=== PATIENT | female | born 1970 | race Caucasian/White ===

== ENCOUNTER 2019-03-03 09:51 | Outpatient (RCR) | payer OTHER, SELFPAY | END 2019-03-16 00:01 | LOC: WOUND 09:51 | PROVIDERS: Visit Provider Nurse Practitioner Family | DX: I87.2 Venous insufficiency (chronic) (peripheral) (principal); L97.822 Non-pressure chronic ulcer of other part of left lower leg with fat layer exposed | CPT/HCPCS: 11042 ×2; 11045 ×2; 87070; 87077; 87176; 87186 ×5; 87205; G0463 ==

== ENCOUNTER 2019-03-18 09:45 | Outpatient (RCR) | payer BC, SELFPAY | END 2019-04-16 23:59 | disposition home or self-care (01) | LOC: WOUND 09:45 | PROVIDERS: Visit Provider Nurse Practitioner Family | DX: I87.2 Venous insufficiency (chronic) (peripheral) (principal); L97.822 Non-pressure chronic ulcer of other part of left lower leg with fat layer exposed; I96 Gangrene, not elsewhere classified | CPT/HCPCS: 11042; 11045 ==

== ENCOUNTER 2019-04-13 09:18 | Day surgery (SDC) | payer BC, SELFPAY ==
[2019-04-13 10:28] VITALS: BP 143/83; PULSE 80; RESP 18; TEMP 36.6; O2SAT 98
--- NOTE | 2019-04-13 10:35 | ANES.PREANES ---
Pre-Anesthetic Assessment Pre-Anesthetic Assessment: Height/Weight: Height 1.68 m Weight 195.045 kg Temp Pulse Resp BP Pulse Ox 98 F 80 18 143/83 98 04/13/19 10:28 04/13/19 10:28 04/13/19 10:28 04/13/19 10:28 04/13/19 10:28 Preop Diagnosis: Left lower extremity ulcer Proposed Procedure: Operation Date: 04/13/19 11:30 Proposed Procedures p Debridement left lower leg(Left) - Stewart Guajardo MD Social: Social History: No alcohol and No tobacco Exam: Pre-Anes Outpt Exam: alert, oriented x 3, clear to auscultation bilaterally and regular rate & rhythm Airway: Submandibular: WNL Cervical ROM: WNL MP: 4 Dentition: Other (teeth ok) History/ROS: No significant history except as noted Pulmonary: Pulmonary: REEVES and Sleep apnea CV/HEM: CV/HEM: HTN : : None reported Hepatic: Hepatic: None reported GI: GI: GERD (occ) Metabolic: Metabolic: DM, Morbid obesity and Thyroid Musc/skel: Musc/skel: Lower Back Pain and OA/DJD Neuropsych: Neuropsych: Neuropathy (feet) Anesthetic Plan: ASA status: III Anesthesia: Anesthesia Evaluation and MAC Risk of > 500 ml blood loss (7ml/kg in children): No PFSH Anesthesia PFSH: Medical History Hypertension (Acute) Irritable bowel syndrome (IBS) (Acute) Surgical History Hx of dilation and curettage (Acute) Data Anesthesia Cardiac Studies: No Data to Display
--- NOTE | 2019-04-13 10:43 | PM.HPUD ---
H&P update H&P Update: DATE OF SURGERY/PROCEDURE: 04/13/19 DATE H&P PERFORMED: 04/09/19 H&P UPDATE INFORMATION: H&P completed within last 30 days and No changes to prior documentation PREOP DIAGNOSIS: Chronic left lower extremity ulcer PLANNED PROCEDURE: Operation Date: 04/13/19 11:30 Proposed Procedures p Debridement left lower leg(Left) - Stewart Guajardo MD Full H&P Perinent History: Medical/Surgical History: Medical History (Updated 04/13/19 @ 10:35 by Jase Ross MD) Hypertension (Acute) Irritable bowel syndrome (IBS) (Acute)
[2019-04-13] MEDS: sodium chloride 0.9% 1,000 ML 30 ML IV (10:59)
[2019-04-13 11:03] LABS: Glucose Point of Care 123 mg/dL (70-110)
[2019-04-13 11:10] LABS: OR HCG Qualitative Urine Negative (Negative)
[2019-04-13 11:32] LABS: Anion Gap 18.9 (5-19); Blood Urea Nitrogen 20 mg/dL (6-20); Calcium 9.8 mg/dL (8.5-10.5); Carbon Dioxide 21 mmol/L (22-29); Chloride 101 mmol/L (98-107); Glomerular Filtration Rate 47.9 mL/min (90-130); Glucose 141 mg/dL (74-109); Osmolality Calculated 281 mOsm/kg (285-295); Potassium 4.9 mmol/L (3.5-5.1); Sodium 136 mmol/L (136-145)
[2019-04-13] MEDS: lidocaine 2% INJ 20 mL INJECTION (11:40)
--- NOTE | 2019-04-13 12:05 | PM.OP ---
Operative Report Date of procedure: 04/13/19 Pre-op Diagnosis: Chronic left lower extremity ulcer Post-op diagnosis: same Post-op Findings: Pre-debridement measurement 9 x 4.7 x 0.2 cm Post debridement measurements 10 x 5 x 0.3 cm Procedure Done: Sharp debridement of left lower extremity ulcer Specimens removed/disposition: Tissue sent to rule out cancer from the superior pole of the ulcer Tissue sent for cultures and sensitivity Surgeon: Stewart Guajardo Director Of Strategic Sales: Jocelyn medical student Branden director medical surgical Anesthesia: MAC (field operator Smart) Estimated blood loss (mL): 5 Complications: No immediate complications Condition: stable Disposition: same day Brief History: This is a pleasant 48 years old female patient has chronic left lower extremity ulcer that has been seen and evaluated at the wound care center by my nurse practitioner, and since the patient had a persistent ulcer for over a year now approximately my nurse practitioner needed my opinion for potential debridement, I did evaluate the patient and apparently she was supposed to get a venous ablation at some point as her working diagnosis is chronic venous insufficiency, but that did not happen for different reasons. . After thorough history physical examination and reviewing the chart and images with my personal interpretation, I counseled the patient for debridement of her left chronic lower extremity ulcer and obtain cultures and sensitivities for infectious disease in [place] in addition I did family and marriage counsellor the patient to obtain a tissue biopsy to rule out potential cancer due to the longevity of the ulcer. Patient agreed on the plan of care Informed consent per chart Procedure: Left lower extremity ulcer After identifying the patient holding area, the left ower extremity was marked before the procedure by myself, patient was then taken to the operative suite, was placed in supine position, IV antibiotics were given per protocol,IV propofol was infused by the anesthesia provider, prep and drape of the left lower extremity was done under the usual sterile technique. Time-out was done verifying the patient's name/date of /planned procedure and destination after the procedure, all were in agreement. Started by excising the unhealthy necrotic indurated tissues of the wound. Incision was created at the skin level and went all the way down to the subcutaneous tissues, and FASCIAL layer of the ulcer, I was able excise all unhealthy tissues Pre-debridement measurement 9 x 4.7 x 0.2 cm Post debridement measurements 10 x 5 x 0.3 cm Sharp Debridement all the way to the healthier muscle layer At the superior pole of the ulcer I elected to take a wedge biopsy ,tissues were sent for permanent histopathology from the edges of the ulcer to rule out malignancy and tissue were sent for cultures Thorough Irrigation of the wound was done with warm saline, followed by appropriate hemostasis followed by placement of large piece of Surgicel,packing of the wound was done with wet-to-dry 4 by 4 followed by ABDs, Kerlix and Emeka wrap. Patient tolerated the procedure well, count of instruments , needles and sponges were completed at the end of the procedure.Patient was then taken to the recovery area in stable condition. I was present for the whole entire procedure
[2019-04-13 12:19] VITALS: BP 111/89; PULSE 95; RESP 18; TEMP 36.3; O2SAT 97
== END 2019-04-13 12:50 | disposition home or self-care (01) ==
PROVIDERS: Anesthesiology; Visit Provider Surgery
PROC: (CPT 11043; principal; 2019-04-13 10:50)
DX: L97.822 Non-pressure chronic ulcer of other part of left lower leg with fat layer exposed (principal); E66.01 Morbid (severe) obesity due to excess calories; Z82.49 Family history of ischemic heart disease and other diseases of the circulatory system; Z83.3 Family history of diabetes mellitus; I10 Essential (primary) hypertension; G47.30 Sleep apnea, unspecified; M19.90 Unspecified osteoarthritis, unspecified site
CPT/HCPCS: 11043; 11046; 12345; 36415; 36416; 80048; 81025; 82962; 84703; 87070; 87077; 87176; 87186; 87205; 88305; J0690; J2001; J2704; J3010; J7030

== ENCOUNTER 2019-04-16 10:44 | Outpatient (RCR) | payer BC, SELFPAY | END 2019-04-16 23:59 | disposition home or self-care (01) | LOC: WOUND 10:44 | PROVIDERS: Visit Provider Surgery | DX: I87.2 Venous insufficiency (chronic) (peripheral) (principal); L97.822 Non-pressure chronic ulcer of other part of left lower leg with fat layer exposed | CPT/HCPCS: 11042; 11045 ==

== ENCOUNTER 2019-05-05 09:54 | Outpatient (RCR) | payer BC, SELFPAY | END 2019-05-15 23:59 | disposition home or self-care (01) | LOC: WOUND 09:54 | PROVIDERS: Visit Provider Nurse Practitioner Family | DX: I87.2 Venous insufficiency (chronic) (peripheral) (principal); L97.822 Non-pressure chronic ulcer of other part of left lower leg with fat layer exposed | CPT/HCPCS: 11042; 11045 ==

== ENCOUNTER 2019-06-09 08:53 | Outpatient (RCR) | payer BC, SELFPAY | END 2019-06-15 23:59 | disposition home or self-care (01) | LOC: WOUND 08:53 | PROVIDERS: Visit Provider Nurse Practitioner Family | DX: I87.2 Venous insufficiency (chronic) (peripheral) (principal); L97.822 Non-pressure chronic ulcer of other part of left lower leg with fat layer exposed | CPT/HCPCS: 11042; 11045 ==

== ENCOUNTER 2019-07-14 09:17 | Outpatient (RCR) | payer BC, SELFPAY | END 2019-07-15 23:59 | disposition home or self-care (01) | LOC: WOUND 09:17 | PROVIDERS: Visit Provider Thoracic Surgery (Cardiothoracic Vascular Surgery) | DX: I87.2 Venous insufficiency (chronic) (peripheral) (principal); L97.822 Non-pressure chronic ulcer of other part of left lower leg with fat layer exposed | CPT/HCPCS: 11042; 11045; 97605 ==

== ENCOUNTER 2019-07-21 09:51 | Outpatient (CLI) | payer BC, SELFPAY | END 2019-07-21 09:52 | disposition home or self-care (01) | LOC: WOUND 09:52 | PROVIDERS: Visit Provider Thoracic Surgery (Cardiothoracic Vascular Surgery) | DX: I87.2 Venous insufficiency (chronic) (peripheral) (principal); L97.822 Non-pressure chronic ulcer of other part of left lower leg with fat layer exposed | CPT/HCPCS: 11042; 11045 ==

== ENCOUNTER 2019-07-28 09:27 | Outpatient (CLI) | payer BC, SELFPAY | END 2019-07-28 09:28 | disposition home or self-care (01) | LOC: WOUND 09:27 | PROVIDERS: Visit Provider Thoracic Surgery (Cardiothoracic Vascular Surgery) | DX: I87.2 Venous insufficiency (chronic) (peripheral) (principal); L97.822 Non-pressure chronic ulcer of other part of left lower leg with fat layer exposed | CPT/HCPCS: 11042; 11045 ==

== ENCOUNTER 2019-08-04 09:29 | Outpatient (CLI) | payer BC, SELFPAY | END 2019-08-04 09:30 | disposition home or self-care (01) | LOC: WOUND 09:30 | PROVIDERS: Visit Provider Thoracic Surgery (Cardiothoracic Vascular Surgery) | DX: I87.2 Venous insufficiency (chronic) (peripheral) (principal); L97.822 Non-pressure chronic ulcer of other part of left lower leg with fat layer exposed | CPT/HCPCS: 11042; 11045 ==

== ENCOUNTER 2019-08-10 15:09 | Outpatient (CLI) | payer BC, SELFPAY | END 2019-08-10 15:10 | disposition home or self-care (01) | LOC: WOUND 15:10 | PROVIDERS: Visit Provider Thoracic Surgery (Cardiothoracic Vascular Surgery) | DX: I87.2 Venous insufficiency (chronic) (peripheral) (principal); L97.822 Non-pressure chronic ulcer of other part of left lower leg with fat layer exposed | CPT/HCPCS: 11042; 11045 ==

== ENCOUNTER 2019-08-18 09:47 | Outpatient (CLI) | payer BC, SELFPAY | END 2019-08-18 09:48 | disposition home or self-care (01) | LOC: WOUND 09:47 | PROVIDERS: Visit Provider Thoracic Surgery (Cardiothoracic Vascular Surgery) | DX: I87.2 Venous insufficiency (chronic) (peripheral) (principal); L97.822 Non-pressure chronic ulcer of other part of left lower leg with fat layer exposed | CPT/HCPCS: 11042; 11045 ==

== ENCOUNTER 2019-08-25 09:37 | Outpatient (CLI) | payer BC, SELFPAY | END 2019-08-25 09:38 | disposition home or self-care (01) | LOC: WOUND 09:38 | PROVIDERS: Visit Provider Thoracic Surgery (Cardiothoracic Vascular Surgery) | DX: I87.2 Venous insufficiency (chronic) (peripheral) (principal); L97.822 Non-pressure chronic ulcer of other part of left lower leg with fat layer exposed | CPT/HCPCS: 11042; 11045 ==

== ENCOUNTER → 2019-08-30 10:29 | Day surgery (SDC) | payer BC, SELFPAY ==
[2019-08-30 11:07] VITALS: BP 126/73; PULSE 88; RESP 16; TEMP 36.9; O2SAT 96
--- NOTE | 2019-08-30 14:46 | P.OP_ITS ---
Operative Report Date of procedure: August 30, 2019 Pre-op Diagnosis: Chronic left lower extremity ulcer with severe venous reflux of left lower extremity greater saphenous vein Post-op diagnosis: same Procedure Done: Radiofrequency catheter ablation of the left greater saphenous vein Pathology: none sent Surgeon: Emmanuel Zhu Anesthesia: Local (1% lidocaine; lidocaine tumescence) Complications: None Condition: stable Disposition: other (Discharge to home) Brief History: Ms. Vargas is a 49-year-old obese female with a longstanding lateral distal venous ulcer of the left lower extremity who is being cared for by [facility] wound care services utilizing debridement and compression therapy. Her evaluation is documented substantial venous reflux of the greater saphenous vein on the left side of greater than 500 ms. Anatomy appears conducive to consideration for catheter ablation to assist with healing of this venous ulcer. Rationale for the procedure was carefully and frankly discussed. Details the risk of the procedure were carefully reviewed. Proper consents have been reviewed and signed. Procedure: The insufficient left greater saphenous vein was verified by ultr asound and diagrammed on the overlying skin. The varicose tributary veins and suitable access sites were identified and mapped. The affected left lower extremity was prepped and draped in the usual sterile fashion. Ms. Vargas was placed in reverse Trendelenburg position. Tumescent was instilled in the skin overlying the access site for local anesthesia. The vein was accessed in the distal left thigh using ultrasound guidance and the Seldinger technique, a guidewire was introduced through the needle, which was then exchanged over the guidewire for a 7F sheath. The RF catheter was placed on the sterile field, flushed and wiped down, prepared, and connected by a sterile cable. She was placed in Trendelenburg position. After RF catheter position was verified by ultrasound, tumescent anesthesia was infiltrated, under ultrasound guidance, precisely into the perivenous compartment along the entire length of vein. After the RF catheter position was again confirmed with ultrasound imaging, and under direct external compression along the length of the heating element, RF energy was applied. The vein was segmentally ablated until the treatment length was completed. Device temperature was maintained at 120 +/- degrees C with an initial power level of 40W dropping to below 20W for each treatment. Total vein length treated 30 cm. Total cycles of RF 14. Time 4 minutes and 40 seconds. Repeat ultrasound of the left greater saphenous vein was performed, confirming successful treatment. The catheter and sheath were withdrawn and hemostasis established with direct pressure. After assuring hemostasis, the skin incision over the saphenous vein was closed with a bandage and graduated compression stocking was applied from the level of the foot to the most proximal length of the thigh. She will follow-up in wound care services in 2 days. Follow-up post treatment ultrasound has also been scheduled. This will be on September 05 at 1:30 PM
== END | disposition home or self-care (01) ==
PROVIDERS: Visit Provider Thoracic Surgery (Cardiothoracic Vascular Surgery)
DX: I87.2 Venous insufficiency (chronic) (peripheral) (principal); L97.522 Non-pressure chronic ulcer of other part of left foot with fat layer exposed; E66.9 Obesity, unspecified; E11.622 Type 2 diabetes mellitus with other skin ulcer; E03.9 Hypothyroidism, unspecified
CPT/HCPCS: 12345; 36475; C1769; C1888; C1894; J2001; J7040; J7050

== ENCOUNTER 2019-09-01 09:36 | Outpatient (CLI) | payer BC, SELFPAY | END 2019-09-01 09:37 | disposition home or self-care (01) | LOC: WOUND 09:38 | PROVIDERS: Visit Provider Thoracic Surgery (Cardiothoracic Vascular Surgery) | DX: I87.2 Venous insufficiency (chronic) (peripheral) (principal); L97.822 Non-pressure chronic ulcer of other part of left lower leg with fat layer exposed | CPT/HCPCS: 11042; 11045 ==

== ENCOUNTER 2019-09-06 13:22 | Outpatient (CLI) | payer BC, SELFPAY ==
--- NOTE | 2019-09-06 13:26 | USCV_ITS ---
Stephani Vargas Age: 49 Gender: F : 1970 Exam Date: 09/06/2019 13:42 Ordering Phys: Emmanuel Zhu MD (Andy) ([email or web address]) Technologist: Briana Wolfe Exam Location: [facility] [place] Indication: POST LT GSAPH ABLATION HISTORY: POST LT ABLATION PROCEDURES: Venous duplex imaging was performed in only the left lower extremity. The following venous structures were evaluated: common femoral vein, profunda vein, proximal portion of the greater saphenous vein, superficial femoral vein, and the popliteal vein. FINDINGS: THE EPIGASTRIC IS OPEN THE CLOT IS MORE THE 3CM AWAY FROM THE CFV NO DVT CONCLUSIONS No evidence of DVT in the above-mentioned identifiable veins on the left side. Patent saphenofemoral junction and inferior epigastric vein. Greater saphenous vein appears to be ablated Dr Sayda Martinez MD [facility] (Electronically Signed) Final Date: 07 September 2019 09:29 S
== END 2019-09-06 13:23 | disposition home or self-care (01) ==
LOC: US 13:23
PROVIDERS: PCP Nurse Practitioner Family; Visit Provider Thoracic Surgery (Cardiothoracic Vascular Surgery)
DX: I83.028 Varicose veins of left lower extremity with ulcer other part of lower leg (principal); I83.90 Asymptomatic varicose veins of unspecified lower extremity
CPT/HCPCS: 93971

== ENCOUNTER 2019-09-06 14:16 | Outpatient (CLI) | payer BC, SELFPAY | END 2019-09-06 14:17 | disposition home or self-care (01) | LOC: WOUND 14:17 | PROVIDERS: PCP Nurse Practitioner Family; Visit Provider Nurse Practitioner Family | DX: Z51.89 Encounter for other specified aftercare (principal); A49.02 Methicillin resistant Staphylococcus aureus infection, unspecified site; I87.332 Chronic venous hypertension (idiopathic) with ulcer and inflammation of left lower extremity | CPT/HCPCS: 29581 ==

== ENCOUNTER 2019-09-08 09:29 | Outpatient (CLI) | payer BC, SELFPAY | END 2019-09-08 09:30 | disposition home or self-care (01) | LOC: WOUND 09:30 | PROVIDERS: PCP Nurse Practitioner Family; Visit Provider Thoracic Surgery (Cardiothoracic Vascular Surgery) | DX: I87.2 Venous insufficiency (chronic) (peripheral) (principal); L97.822 Non-pressure chronic ulcer of other part of left lower leg with fat layer exposed | CPT/HCPCS: 11042; 11045 ==

== ENCOUNTER 2019-09-15 09:06 | Outpatient (CLI) | payer BC, SELFPAY | END 2019-09-15 09:07 | disposition home or self-care (01) | LOC: WOUND 09:06 | PROVIDERS: PCP Nurse Practitioner Family; Visit Provider Thoracic Surgery (Cardiothoracic Vascular Surgery) | DX: I87.2 Venous insufficiency (chronic) (peripheral) (principal); L97.822 Non-pressure chronic ulcer of other part of left lower leg with fat layer exposed | CPT/HCPCS: 11042; 11045 ==

== ENCOUNTER 2019-09-22 09:27 | Outpatient (CLI) | payer BC, SELFPAY | END 2019-09-22 09:28 | disposition home or self-care (01) | LOC: WOUND 09:27 | PROVIDERS: PCP Nurse Practitioner Family; Visit Provider Thoracic Surgery (Cardiothoracic Vascular Surgery) | DX: I87.2 Venous insufficiency (chronic) (peripheral) (principal); L97.822 Non-pressure chronic ulcer of other part of left lower leg with fat layer exposed | CPT/HCPCS: 11042; 11045 ==

== ENCOUNTER 2019-09-29 09:18 | Outpatient (CLI) | payer BC, SELFPAY | END 2019-09-29 09:19 | disposition home or self-care (01) | LOC: WOUND 09:19 | PROVIDERS: PCP Nurse Practitioner Family; Visit Provider Thoracic Surgery (Cardiothoracic Vascular Surgery) | DX: I87.2 Venous insufficiency (chronic) (peripheral) (principal); L97.822 Non-pressure chronic ulcer of other part of left lower leg with fat layer exposed | CPT/HCPCS: 11042; 11045 ==

== ENCOUNTER 2019-10-06 09:47 | Outpatient (CLI) | payer BC, SELFPAY | END 2019-10-06 09:48 | disposition home or self-care (01) | LOC: WOUND 09:48 | PROVIDERS: PCP Nurse Practitioner Family; Visit Provider Emergency Medicine | DX: I87.2 Venous insufficiency (chronic) (peripheral) (principal); L97.822 Non-pressure chronic ulcer of other part of left lower leg with fat layer exposed | CPT/HCPCS: 11042; 11045; 87070; 87077; 87176; 87186; 87205 ==

== ENCOUNTER 2019-10-13 09:39 | Outpatient (CLI) | payer BC, SELFPAY | END 2019-10-13 09:40 | disposition home or self-care (01) | LOC: WOUND 09:40 | PROVIDERS: PCP Nurse Practitioner Family; Visit Provider Emergency Medicine | DX: I87.2 Venous insufficiency (chronic) (peripheral) (principal); L97.822 Non-pressure chronic ulcer of other part of left lower leg with fat layer exposed | CPT/HCPCS: 11042; 11045 ==

== ENCOUNTER 2019-10-20 13:13 | Outpatient (RCR) | payer BC, SELFPAY | END 2019-11-15 23:59 | disposition home or self-care (01) | LOC: WOUND 13:13 | PROVIDERS: PCP Nurse Practitioner Family; Visit Provider Nurse Practitioner Family | DX: I87.2 Venous insufficiency (chronic) (peripheral) (principal); L97.822 Non-pressure chronic ulcer of other part of left lower leg with fat layer exposed | CPT/HCPCS: 11042; 11045 ==

== ENCOUNTER 2019-10-27 09:51 | Outpatient (CLI) | payer BC, SELFPAY | END 2019-10-27 09:52 | disposition home or self-care (01) | LOC: WOUND 09:51 | PROVIDERS: PCP Nurse Practitioner Family; Visit Provider Thoracic Surgery (Cardiothoracic Vascular Surgery) | DX: I87.2 Venous insufficiency (chronic) (peripheral) (principal); L97.822 Non-pressure chronic ulcer of other part of left lower leg with fat layer exposed | CPT/HCPCS: 11042; 11045 ==

== ENCOUNTER 2019-11-03 09:33 | Outpatient (CLI) | payer BC, SELFPAY | END 2019-11-03 09:34 | disposition home or self-care (01) | LOC: WOUND 09:34 | PROVIDERS: PCP Nurse Practitioner Family; Visit Provider Nurse Practitioner Family | DX: I87.2 Venous insufficiency (chronic) (peripheral) (principal); L97.822 Non-pressure chronic ulcer of other part of left lower leg with fat layer exposed | CPT/HCPCS: 11042; 11045 ==

== ENCOUNTER 2019-11-10 09:37 | Outpatient (CLI) | payer BC, SELFPAY | END 2019-11-10 09:38 | disposition home or self-care (01) | LOC: WOUND 09:37 | PROVIDERS: PCP Nurse Practitioner Family; Visit Provider Emergency Medicine | DX: I87.2 Venous insufficiency (chronic) (peripheral) (principal); L97.822 Non-pressure chronic ulcer of other part of left lower leg with fat layer exposed | CPT/HCPCS: 11042; 11045 ==

== ENCOUNTER 2019-11-17 09:33 | Outpatient (CLI) | payer BC, SELFPAY | END 2019-11-17 09:34 | disposition home or self-care (01) | LOC: WOUND 09:34 | PROVIDERS: PCP Nurse Practitioner Family; Visit Provider Emergency Medicine | DX: I87.2 Venous insufficiency (chronic) (peripheral) (principal); L97.822 Non-pressure chronic ulcer of other part of left lower leg with fat layer exposed | CPT/HCPCS: 11042; 11045; 87070; 87077; 87176; 87186; 87205 ==

== ENCOUNTER 2019-11-24 09:23 | Outpatient (CLI) | payer BC, SELFPAY | END 2019-11-24 09:24 | disposition home or self-care (01) | LOC: WOUND 09:24 | PROVIDERS: PCP Nurse Practitioner Family; Visit Provider Emergency Medicine | DX: I87.2 Venous insufficiency (chronic) (peripheral) (principal); L97.822 Non-pressure chronic ulcer of other part of left lower leg with fat layer exposed | CPT/HCPCS: 11042; 11045 ==

== ENCOUNTER 2019-12-01 09:48 | Outpatient (CLI) | payer BC, SELFPAY | END 2019-12-01 09:49 | disposition home or self-care (01) | LOC: WOUND 09:49 | PROVIDERS: PCP Nurse Practitioner Family; Visit Provider Emergency Medicine | DX: I87.2 Venous insufficiency (chronic) (peripheral) (principal); L97.822 Non-pressure chronic ulcer of other part of left lower leg with fat layer exposed | CPT/HCPCS: 11042; 11045 ==

== ENCOUNTER 2019-12-08 09:41 | Outpatient (CLI) | payer BC, SELFPAY | END 2019-12-08 09:42 | disposition home or self-care (01) | LOC: WOUND 09:42 | PROVIDERS: PCP Nurse Practitioner Family; Visit Provider Nurse Practitioner Family | DX: I87.2 Venous insufficiency (chronic) (peripheral) (principal); L97.822 Non-pressure chronic ulcer of other part of left lower leg with fat layer exposed | CPT/HCPCS: 11042; 11045 ==

== ENCOUNTER 2019-12-15 09:34 | Outpatient (CLI) | payer BC, SELFPAY | END 2019-12-15 09:35 | disposition home or self-care (01) | LOC: WOUND 09:35 | PROVIDERS: PCP Nurse Practitioner Family; Visit Provider Nurse Practitioner Family | DX: I87.2 Venous insufficiency (chronic) (peripheral) (principal); L97.822 Non-pressure chronic ulcer of other part of left lower leg with fat layer exposed | CPT/HCPCS: 11042; 11045 ==

== ENCOUNTER 2019-12-22 10:03 | Outpatient (CLI) | payer BC, SELFPAY | END 2019-12-22 10:04 | disposition home or self-care (01) | LOC: WOUND 10:04 | PROVIDERS: PCP Nurse Practitioner Family; Visit Provider Surgery | DX: I87.332 Chronic venous hypertension (idiopathic) with ulcer and inflammation of left lower extremity (principal); L97.822 Non-pressure chronic ulcer of other part of left lower leg with fat layer exposed | CPT/HCPCS: 29581 ==

== ENCOUNTER 2019-12-29 09:53 | Outpatient (CLI) | payer BC, SELFPAY | END 2019-12-29 09:54 | disposition home or self-care (01) | LOC: WOUND 09:54 | PROVIDERS: PCP Nurse Practitioner Family; Visit Provider Nurse Practitioner Family | DX: I87.2 Venous insufficiency (chronic) (peripheral) (principal); L97.822 Non-pressure chronic ulcer of other part of left lower leg with fat layer exposed | CPT/HCPCS: 11042; 11045 ==

== ENCOUNTER 2020-01-05 10:07 | Outpatient (CLI) | payer BC, SELFPAY | END 2020-01-05 10:08 | disposition home or self-care (01) | LOC: WOUND 10:08 | PROVIDERS: PCP Nurse Practitioner Family; Visit Provider Thoracic Surgery (Cardiothoracic Vascular Surgery) | DX: I87.2 Venous insufficiency (chronic) (peripheral) (principal); L97.822 Non-pressure chronic ulcer of other part of left lower leg with fat layer exposed | CPT/HCPCS: 11042; 11045 ==

== ENCOUNTER 2020-01-12 09:40 | Outpatient (CLI) | payer BC, SELFPAY | END 2020-01-12 09:41 | disposition home or self-care (01) | LOC: WOUND 09:40 | PROVIDERS: PCP Nurse Practitioner Family; Visit Provider Thoracic Surgery (Cardiothoracic Vascular Surgery) | DX: I87.2 Venous insufficiency (chronic) (peripheral) (principal); L97.822 Non-pressure chronic ulcer of other part of left lower leg with fat layer exposed | CPT/HCPCS: 11042; 11045 ==

== ENCOUNTER 2020-01-19 09:49 | Outpatient (CLI) | payer BC, SELFPAY | END 2020-01-19 09:50 | disposition home or self-care (01) | LOC: WOUND 09:50 | PROVIDERS: PCP Nurse Practitioner Family; Visit Provider Thoracic Surgery (Cardiothoracic Vascular Surgery) | DX: I87.2 Venous insufficiency (chronic) (peripheral) (principal); L97.822 Non-pressure chronic ulcer of other part of left lower leg with fat layer exposed | CPT/HCPCS: 11042; 11045 ==

== ENCOUNTER 2020-01-26 14:48 | Outpatient (CLI) | payer BC, SELFPAY | END 2020-01-26 14:49 | disposition home or self-care (01) | LOC: WOUND 14:48 | PROVIDERS: PCP Nurse Practitioner Family; Visit Provider Thoracic Surgery (Cardiothoracic Vascular Surgery) | DX: I87.2 Venous insufficiency (chronic) (peripheral) (principal); L97.822 Non-pressure chronic ulcer of other part of left lower leg with fat layer exposed | CPT/HCPCS: 11042; 11045 ==

== ENCOUNTER 2020-02-02 09:37 | Outpatient (CLI) | payer BC, SELFPAY | END 2020-02-02 09:38 | disposition home or self-care (01) | LOC: WOUND 09:38 | PROVIDERS: PCP Nurse Practitioner Family; Visit Provider Nurse Practitioner Family | DX: I87.2 Venous insufficiency (chronic) (peripheral) (principal); L97.822 Non-pressure chronic ulcer of other part of left lower leg with fat layer exposed | CPT/HCPCS: 11042; 11045 ==

== ENCOUNTER 2020-02-09 09:21 | Outpatient (CLI) | payer BC, SELFPAY | END 2020-02-09 09:22 | disposition home or self-care (01) | PROVIDERS: PCP Nurse Practitioner Family; Visit Provider Nurse Practitioner Family | DX: I87.2 Venous insufficiency (chronic) (peripheral) (principal); L97.822 Non-pressure chronic ulcer of other part of left lower leg with fat layer exposed | CPT/HCPCS: 11042; 11045; A6545 ==

== ENCOUNTER 2020-02-22 14:27 | Outpatient (CLI) | payer BC, SELFPAY | END 2020-02-22 14:28 | disposition home or self-care (01) | LOC: WOUND 14:28 | PROVIDERS: PCP Nurse Practitioner Family; Visit Provider Thoracic Surgery (Cardiothoracic Vascular Surgery) | DX: I87.2 Venous insufficiency (chronic) (peripheral) (principal); L97.522 Non-pressure chronic ulcer of other part of left foot with fat layer exposed | CPT/HCPCS: 11042; 11045 ==